=== PATIENT | male | born 1960 | race Caucasian/White ===

== ENCOUNTER 2020-03-16 13:48 | Outpatient (CLI) | payer OTHER, SELFPAY ==
--- NOTE | 2020-03-16 14:00 | MR_ITS ---
WS: [id number] MRI BRAIN WITH AND WITHOUT CONTRAST HISTORY: MS COMPARISON: None available. TECHNIQUE: Multiplanar imaging performed through the brain with Prohance 17 ml's IV. No acute infarcts are seen. Christianson-white matter differentiation is well preserved. There are numerous T 2 and FLAIR signal hyperintensities in a pericallosal distribution bilaterally. Signal intensities ar e perpendicular to the corpus callosum where there is mixed signal consistent with areas of necrosis. There are numerous T2 and FLAIR signal hyperintensities along the corpus callosum and within the tem poral lobes. None of these areas enhance. There are intermediate signal abnormalities in the RIGHT c erebellar peduncle and inferior RIGHT cerebellum. No susceptibility artifacts or prior lacunar infarcts. Normal size of the ventricles and extra-axial spaces. Clivus and pituitary gland are normal. No signal abnormality within the visualized upper cervical spine. Postcontrast images are negative for masses or vascular malformations. Dural venous sinuses are normal. Paranasal sinuses: Air-fluid level in the sphenoid sinus. Mastoid air cells: Normal. Calvarium and scalp: Normal. MR/MR head wo/w con [id number] IMPRESSION: 1. Numerous signal abnormalities consistent with moderately severe demyelinati ng disease as described above. None of the lesions enhance. 2. No acute infarct or mass.
== END 2020-03-16 13:49 | disposition home or self-care (01) ==
LOC: RADWPI 13:53
PROVIDERS: Family Provider Internal Medicine; PCP Internal Medicine; Visit Provider Specialist
DX: G35 Multiple sclerosis (principal)
CPT/HCPCS: 70553; 99214; A9579

== ENCOUNTER → 2021-01-03 14:05 | Outpatient (BNVA) | payer OTHER, SELFPAY | PROVIDERS: Family Provider Internal Medicine; PCP Internal Medicine; Visit Provider Specialist | DX: G35 Multiple sclerosis (principal); Z87.891 Personal history of nicotine dependence | CPT/HCPCS: 99214 ==

== ENCOUNTER → 2022-08-14 13:14 | Outpatient (BNVA) | payer OTHER, SELFPAY | PROVIDERS: Family Provider Internal Medicine; PCP Internal Medicine; Visit Provider Specialist | DX: G35 Multiple sclerosis (principal); E11.42 Type 2 diabetes mellitus with diabetic polyneuropathy; Z79.84 Long term (current) use of oral hypoglycemic drugs; R26.9 Unspecified abnormalities of gait and mobility | CPT/HCPCS: 99214 ==

== ENCOUNTER → 2023-02-13 14:30 | Outpatient (BNVA) | payer OTHER, SELFPAY | PROVIDERS: Family Provider Internal Medicine; PCP Internal Medicine; Visit Provider Specialist | DX: G35 Multiple sclerosis (principal) | CPT/HCPCS: 99214 ==

== ENCOUNTER → 2025-05-18 15:31 | Outpatient (BNVA) | payer OTHER, SELFPAY | PROVIDERS: Family Provider Internal Medicine; PCP Internal Medicine; Referring Provider Internal Medicine; Visit Provider Specialist | DX: G35 Multiple sclerosis (principal); I61.9 Nontraumatic intracerebral hemorrhage, unspecified | CPT/HCPCS: 99214 ==